=== PATIENT | male | born 1965 | race Caucasian/White ===

== ENCOUNTER 2024-08-18 15:58 | Emergency (ER) | payer BC, SELFPAY ==
[2024-08-18 16:00] VITALS: BP 160/90
--- NOTE | 2024-08-18 16:03 | ED.PDOC.TRB ---
ED Provider Triage
-
Patient seen by provider in Triage?: Seen in Triage
Attestation: A medical screening examination has been initiated by a qualified medical provider. Based on the assessment performed at this time, it has been determined that an emergent medical condition may exist and the patient has been informed
that further medical evaluation and possible additional diagnostic testing may be needed.
HPI: 59-year-old male presents the emergency department for evaluation of episodic period of nausea and dizziness occurring over the past week. He states the episodes last approximately 1 minute before resolving. Went to urgent care and had an EKG
showing sinus bradycardia. He was referred here due to the bradycardia. Denies any chest pain, shortness of breath, or near syncope. 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
GENERAL: Alert , in no apparent distress
EYE: No visual abnormalities.
NECK: Trachea midline
ENT: No visible abnormalities.
LUNGS: No acute respiratory distress
NEUROLOGICAL: Alert and oriented
SKIN: Skin intact. No visible changes.
MUSCULOSKELETAL: Moving extremities normally
PSYCH: Normal and appropriate interaction.
Assessment: Patient appears clinically stable. Does not sound near syncopal in nature. Could be intermittent vertigo. Will repeat EKG as the urgent care EKG has some baseline artifact, check basic labs. Do not see any indication to workup for
acute coronary syndrome
This is a medical evaluation conducted in person to initiate diagnostic evaluation and provide initial therapeutics. Please see further documentation by the treating clinician.
[2024-08-18 16:29] LABS: Hematocrit 42.2 % (39.0-52.0); Hemoglobin 14.9 g/dL (13.0-18.0); Mean Corp Hgb Conc. 35.3 g/dL (33.0-37.0); Mean Corpuscular Hgb 31.8 pg (27.0-31.0); Mean Platelet Volume 9.8 fL (7.4-10.4); Platelet Count 251 10^3/uL (130-400); Red Blood Cell Count 4.69 10^6/uL (4.70-6.10); Red Cell Dist. Width 12.3 % (11.5-14.5); White Blood Cell Count 8.2 10^3/uL (4.8-10.8)
[2024-08-18 16:45] LABS: ALT (SGPT) 21 U/L (0-50); AST (SGOT) 26 U/L (17-59); Albumin 4.7 g/dl (3.5-5.0); Alkaline Phosphatase 67 U/L (38-126); Blood Urea Nitrogen 16 mg/dl (9-20); Carbon Dioxide 27 mmol/L (22-30); Chloride 100 mmol/L (98-107); Glucose 94 mg/dl (70-99); Potassium 4.6 mmol/L (3.5-5.1); Sodium 140 mmol/L (135-145); Total Bilirubin 0.6 mg/dl (0.2-1.3); Total Protein 8.1 g/dl (6.3-8.2); eGFR > 60.00
--- NOTE | 2024-08-18 17:55 | ED.GENMED ---
History of Present Illness
General
Chief Complaint: Heart Rate Problem
Source: patient
Time Seen by Provider: 08/18/24 17:03
History of Present Illness
History of Present Illness:
59-year-old male with past medical history of hypertension presenting to the emergency department for evaluation from urgent care after patient went there earlier noting he had been experiencing an episode of lightheadedness since Saturday of last
week stating that usually for 30 seconds to a minute 1 time per day he has had this lightheadedness and then it resolves. Sometimes patient gets a little nauseous with this but no vomiting up until today where he did have an episode of vomiting.
The episodes occur randomly, not attributed to any position that patient may be standing or sitting, no headaches, no vision changes, no focal weakness or numbness. Patient is without any other concerns and otherwise asymptomatic at this time.
Patient thought that maybe he had a sinus infection or inner ear infection which is why he went to the urgent care. While at the urgent care they noted patient had a heart rate around 51 and thought it might be related to his heart rate.
Past History
Past History
ED Past Medical History: HTN
ED Past Surgical History: None
Social History
Tobacco: Former smoker
Alcohol: Daily (5-6 beers)
Drug: None
Personal:
Living: with family
Employment: Employed (Works at [employer])
Review of Systems
Review of Systems
All Other Systems: ROS reviewed and negative except as documented in HPI and ROS
Phy Exam
Physical Exam
Physical Exam:
GENERAL: Alert , in no apparent distress
EYE: conjunctiva clear
NECK: Supple
ENT: o/p clr, mmm.
CARDIAC: Borderline bradycardic rate and rhythm, no murmur
LUNGS: Clear breath sounds bilaterally, no acute respiratory distress, no wheezes/rales/rhonchi
NEUROLOGICAL: Alert and oriented
SKIN: Warm and dry, skin intact. Scattered and excoriated macular rash to bilateral lower extremities which patient states is from a week or so ago. PCP provided him with a topical corticosteroid ointment.
MUSCULOSKELETAL: well perfused.
PSYCH: Normal and appropriate interaction.
Scores
Heart Failure Risk
Heart Failure Risk Score: Not Applicable
Heart Score for Chest Pain Patients
STEMI patient?: Not applicable
Withdrawal Assessment of Alcohol
Withdrawal Assessment Completed?: Not applicable
Course
Orders/Labs/Results
Orders:
Orders
08/18/24 16:02
Electrocardiogram (*1) Urgent
Reason for Study: Vertigo / Dizzy
EKG- Treatment ONCE
08/18/24 16:13
Complete Blood Count/No Diff Urgent
Comprehensive Metabolic Panel Urgent
Lyme Progressive Urgent
Comment: ADD ON
08/18/24 17:17
Add On- LAB Urgent
Tests Added?: lyme progressive
Orthostatic VS- Treatment ONCE
Abnormal Lab Results
08/18/24
16:13
RBC 4.69 L 10^6/uL
(4.70-6.10)
MCH 31.8 H pg
(27.0-31.0)
Creatinine 0.6 L mg/dL
(0.7-1.3)
08/18/24 16:13
08/18/24 16:13
Vital Signs
Initial and Last Documented VS:
Initial Vital Signs
Temp Pulse Resp BP Pulse Ox
98.8 F 59 17 160/90 98
08/18/24 16:00 08/18/24 16:00 08/18/24 16:00 08/18/24 16:00 08/18/24 16:00
Last Documented Vital Signs
Temp Pulse Resp BP Pulse Ox
98.8 F 59 17 160/90 98
08/18/24 16:00 08/18/24 16:00 08/18/24 16:00 08/18/24 16:00 08/18/24 16:00
MDM/Problems Addressed
Differential Diagnosis Includes:
Orthostasis, symptomatic bradycardia, other cardiac arrhythmia, electrolyte derangement, Lyme disease
MDM/Problems Addressed:
59-year-old male presenting to the emergency department for evaluation of intermittent lightheadedness, notes he usually only gets 1 episode per day lasting 1 minute or less, fully asymptomatic at present. Heart rate while in room was between 56
and 62 bpm. Patient remained asymptomatic when heart rate was around 56. Labs were initiated on arrival and they are unremarkable. Will check orthostatics. 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
had been in the bernal but did not notice any ticks on him. No fevers or infectious symptoms. Ultimately anticipate continued outpatient workup with primary care provider and will provide with information for cardiology as patient may need a Holter
monitor.
*Pulse Oximetry
Patient hypoxic: no
*EKG
Interpreted by ED Provider?: Yes
Comparison EKG: no comparison EKG present
Heart Rate: 55
Rate: bradycardiac
Rhythm: sinus
[place]: left axis deviation
*Towel Sorter Interpretation
Rate: bradycardiac
Rhythm: sinus
*Critical Care Note
Total Time (30-74mins, 75-104mins- exclusive of procedures): Not Applicable
Patient Management
Escalation/DeEscalation of care consider admission/obs:
Orthostatics unremarkable. Patient feels comfortable being discharged home will follow-up with primary care provider. Information for cardiology also provided. Aware of return precautions to the ER.
ED Attending Note
-
Portions of this chart may have been created with voice recognition software.� Occasional wrong word or��sound alike� substitutions may have occurred due to the inherent limitations of voice recognition software.
Discharge Plan
Departure
Patient Disposition: Home (Routine Discharge)
Date of Disposition: 08/18/24
Time of Disposition: 18:31
Patient with high blood pressure during this ER visit?: Yes
Discharge Problem:
Lightheadedness
Instructions: Dizziness, Nonvertigo, (DC)
Referrals:
Nikolas Lux MD [Active] - (Cardiology)
Ivon Florez MD [Family Provider] -
Interventions
Interventions:
*Risk Screen - Suicide Last Done: 08/18/24 16:03
*General Assessment Last Done: 08/18/24 16:03
*Neglect/Abuse Screening Last Done: 08/18/24 16:03
*ED COVID-19 Vaccine History Last Done: 08/18/24 16:03
*Nursing Disposition Last Done: 08/18/24 19:14
ED- Cardiac Assessment Last Done: 08/18/24 17:40
ED- Pulmonary Assessment Last Done: 08/18/24 17:40
Discharge Date and Time
Discharge Date/Time: 08/18/24 19:14
Print Language: OCCITAN
[2024-08-18 18:03] VITALS: BP 150/85; BP 155/80; BP 166/87; PULSE 53; PULSE 57
[2024-08-20 15:39] LABS: Lyme Antibody Screen, EIA Negative (Negative)
== END 2024-08-18 19:14 | disposition home or self-care (01) ==
LOC: EMR 15:58
PROVIDERS: Physician Assistant; EMERGENCY PHYSICIAN Emergency Medicine; FAMILY PHYSICIAN Family Medicine
DX: R42 Dizziness and giddiness (principal); I10 Essential (primary) hypertension; Z87.891 Personal history of nicotine dependence
CPT/HCPCS: 99284; 80053; 85027; 86618; 93005

== ENCOUNTER 2024-09-01 17:59 | Emergency (ER) | payer BC, SELFPAY ==
[2024-09-01] VITALS (7 sets, daily range): BP systolic 149–179; BP diastolic 75–87; PULSE 54–56; BMI 36.5
[2024-09-01 18:26] LABS: % Basophils 0.6 % (0-2); % Eosinophils 2.7 % (0-6); % Immature Granulocytes 0.3 % (0-0.5); % Lymphocytes 23.9 % (20.5-51.1); % Neutrophils 63.5 % (42.2-75.2); Absolute Eosinophils 0.2 10^3/uL (0-0.7); Absolute Lymphocytes 1.7 10^3/uL (1.2-3.4); Absolute Monocytes 0.6 10^3/uL (0.1-0.6); Absolute Neutrophils 4.5 10^3/uL (1.4-6.5); Hematocrit 39.5 % (39.0-52.0); Hemoglobin 14.1 g/dL (13.0-18.0); Mean Corp Hgb Conc. 35.7 g/dL (33.0-37.0); Mean Corpuscular Hgb 32.4 pg (27.0-31.0); Mean Corpuscular Volume 90.8 fL (80.0-94.0); Mean Platelet Volume 9.8 fL (7.4-10.4); Nucleated Red Blood Cells % 0 % (-); Platelet Count 225 10^3/uL (130-400); Red Blood Cell Count 4.35 10^6/uL (4.70-6.10); Red Cell Dist. Width 12.4 % (11.5-14.5)
[2024-09-01 18:40] LABS: ALT (SGPT) 24 U/L (0-50); AST (SGOT) 30 U/L (17-59); Albumin 4.4 g/dl (3.5-5.0); Alkaline Phosphatase 47 U/L (38-126); Blood Urea Nitrogen 19 mg/dl (9-20); Calcium 9.7 mg/dl (8.4-10.2); Carbon Dioxide 24 mmol/L (22-30); Chloride 103 mmol/L (98-107); Glucose 124 mg/dl (70-99); Sodium 139 mmol/L (135-145); Total Bilirubin 0.6 mg/dl (0.2-1.3); Total Protein 7.5 g/dl (6.3-8.2); eGFR > 60.00
--- NOTE | 2024-09-01 20:38 | ED.GENMED ---
History of Present Illness
General
Chief Complaint: Dizziness
Time Seen by Provider: 09/01/24 20:03
History of Present Illness
History of Present Illness:
59-year-old male history of hypertension presenting with dizziness. Patient states that he has been having episodes of dizziness lasting approximately 1 minute described as feeling 'woozy' with associated nausea and then has a mild frontal headache
afterwards. Patient states that this been happening for the past 3 weeks. Patient states that he was evaluated in the hospital 2 weeks ago, had negative workup and was discharged. Patient states that since then he has increased his water intake.
Patient denies numbness, weakness, tingling, chest pain, shortness of breath, or urinary symptoms. Patient states that he has noticed that symptoms typically happens when he first stands up. Patient states that today he stood up to vacuum when it
happened and then another time when he stood up from his desk. Patient denies any symptoms at this current time.
Past History
Past History
ED Past Medical History: HTN
ED Past Surgical History: None
Social History
Tobacco: Former smoker
Alcohol: Daily (5-6 beers)
Drug: None
Personal:
Living: with family
Employment: Employed (Works at [employer])
Phy Exam
Physical Exam
Physical Exam:
General: Alert, no acute distress
Head: NCAT
Eyes: clear conjunctiva, PERRLA, EOMI. No nystagmus
Neck: supple
Cardiac: regular rate and rhythm, no murmur
Lungs: clear to auscultation bilaterally. No wheezes, rales, or rhonchi. Speaking full unlabored sentences. No respiratory distress.
Abdomen: soft, nondistended nontender. No rebound or guarding.
MSK: no lower extremity edema bilaterally. No deformity
Skin: warm, dry
Neuro: Alert and oriented x3. Cranial nerves II through XII grossly intact no focal deficits. Normal finger-nose and [id number]-odoj. No pronator drift bilateral upper and lower extremities. Sensation intact. 5-5 strength bilateral upper and lower
extremities. No slurred speech.
Course
Orders/Labs/Results
Orders:
Orders
09/01/24 17:59
Electrocardiogram (*1) Urgent
Reason for Study: Vertigo / Dizzy
EKG- Treatment ONCE
09/01/24 18:15
Complete Blood Count/With Diff Urgent
Comprehensive Metabolic Panel Urgent
09/01/24 20:42
0.9% Sodium Chloride 1000 ml [Nss] 1,000 ml IV BOLUS
Abnormal Lab Results
09/01/24
18:15
RBC 4.35 L 10^6/uL
(4.70-6.10)
MCH 32.4 H pg
(27.0-31.0)
Glucose 124 H mg/dl
(70-99)
09/01/24 18:15
09/01/24 18:15
Vital Signs
Initial and Last Documented VS:
Initial Vital Signs
Temp Pulse Resp BP Pulse Ox
98.3 F 58 20 179/82 98
09/01/24 18:03 09/01/24 18:03 09/01/24 18:03 09/01/24 18:03 09/01/24 18:03
Last Documented Vital Signs
Temp Pulse Resp BP Pulse Ox
98.3 F 51 16 149/80 97
09/01/24 18:03 09/01/24 22:00 09/01/24 22:00 09/01/24 22:00 09/01/24 22:00
MDM/Problems Addressed
Differential Diagnosis Includes:
Orthostatic hypotension, electrolyte abnormality, [place], anemia, arrhythmia
MDM/Problems Addressed:
59-year-old male history of hypertension presenting with episodes of dizziness that typically happen after he stands up. Patient states this been going on for the past 3 weeks but had 2 worsening episodes today prompting ED evaluation. Patient
denies associated symptoms including numbness, weakness, tingling, chest pain or shortness of breath. Patient denies any symptoms currently. Labs reviewed, hemoglobin 14.1. Electrolytes within normal limits. Creatinine within normal limits.
Elevated BUN to creatinine ratio. EKG shows sinus bradycardia 59 bpm with SC 166 QTc 451 no acute ischemic changes. Heart rate in the room in the low 50s to the low 60s. Patient asymptomatic during my evaluation. Orthostatics negative during ER
evaluation. Discussed with patient at bedside. Advised to follow up with cardiology and PCP, pt expressed verbal understanding.
*Critical Care Note
Total Time (30-74mins, 75-104mins- exclusive of procedures): Not Applicable
ED Attending Note
-
Portions of this chart may have been created with voice recognition software.� Occasional wrong word or��sound alike� substitutions may have occurred due to the inherent limitations of voice recognition software.
Discharge Plan
Departure
Patient Disposition: Home (Routine Discharge)
Date of Disposition: 09/01/24
Time of Disposition: 21:34
Patient with high blood pressure during this ER visit?: Yes
Discharge Problem:
Dizziness
Instructions: Chest Pain CBC Follow Up, Dizziness
Referrals:
Ivon Florez MD [Family Provider] -
Activity Restrictions/Additional Instructions:
Follow-up with primary care doctor and cardiology in 1 to 2 days
Continue to drink lots of water, stay hydrated
Return to the emergency department for chest pain, numbness, weakness, tingling or new/worsening symptoms
Interventions
Interventions:
*Risk Screen - Suicide Last Done: 09/01/24 18:03
*General Assessment Last Done: 09/01/24 18:03
*Neglect/Abuse Screening Last Done: 09/01/24 18:03
ED- Fall Risk Assessment Last Done: 09/01/24 22:08
*ED COVID-19 Vaccine History Last Done: 09/01/24 19:29
*Nursing Disposition Last Done: 09/01/24 22:08
ED- Neurological Assessment Last Done: 09/01/24 19:45
ED- Cardiac Assessment Last Done: 09/01/24 19:45
ED Swallowing Screen Last Done: 09/01/24 19:55
Discharge Date and Time
Discharge Date/Time: 09/01/24 22:08
Print Language: HUNGARIAN
[2024-09-01] MEDS: NSS 1000 IV (21:00)
== END 2024-09-01 22:08 | disposition home or self-care (01) ==
LOC: EMR 17:59
PROVIDERS: Emergency Medicine; EMERGENCY PHYSICIAN Emergency Medicine; FAMILY PHYSICIAN Family Medicine
DX: R42 Dizziness and giddiness (principal); R11.0 Nausea; R51.9 Headache, unspecified; I10 Essential (primary) hypertension; Z87.891 Personal history of nicotine dependence
CPT/HCPCS: 99284; 96360; 80053; 85025; 93005

== ENCOUNTER → 2024-09-11 11:35 | Outpatient (REF) | payer BC, SELFPAY | LOC: DHCBC/DCA 11:35 | PROVIDERS: ATTENDING PHYSICIAN Internal Medicine Cardiovascular Disease; FAMILY PHYSICIAN Family Medicine | DX: R42 Dizziness and giddiness (principal); R94.31 Abnormal electrocardiogram [ECG] [EKG]; I10 Essential (primary) hypertension | CPT/HCPCS: 78452; 93017; A9500 ==

== ENCOUNTER → 2024-09-15 12:10 | Outpatient (REF) | payer BC, SELFPAY | LOC: HWRAD 12:10 | PROVIDERS: ATTENDING PHYSICIAN Family Medicine | DX: R42 Dizziness and giddiness (principal) | CPT/HCPCS: 70450 ==

== ENCOUNTER → 2024-10-21 12:26 | Outpatient (REF) | payer BC, SELFPAY | LOC: RCS 12:26 | PROVIDERS: ATTENDING PHYSICIAN Internal Medicine Cardiovascular Disease; FAMILY PHYSICIAN Family Medicine | DX: R42 Dizziness and giddiness (principal); R94.31 Abnormal electrocardiogram [ECG] [EKG]; I10 Essential (primary) hypertension | CPT/HCPCS: 93306 ==